=== PATIENT | male | born 1995 | race Caucasian/White ===

== ENCOUNTER 2023-11-23 04:34 | Emergency (ER) | payer OTHER ==
[~2023-11-23] VITALS: Ht 193 cm; Wt 90.7 kg
[2023-11-23 05:00] VITALS: BP 122/87; PULSE 91; RESP 16; O2SAT 98
== END 2023-11-23 06:12 | disposition left against medical advice (07) ==
LOC: ER 04:34
DX: R11.2 Nausea with vomiting, unspecified (principal); R19.7 Diarrhea, unspecified; M79.605 Pain in left leg; M79.604 Pain in right leg; Z53.21 Procedure and treatment not carried out due to patient leaving prior to being seen by health care provider